=== PATIENT | male | born 1980 | race Two or more races ===

== ENCOUNTER 2021-07-25 19:07 | Emergency (ER) | payer OTHER ==
[~2021-07-25] VITALS: Ht 162.6 cm; Wt 103.0 kg
[2021-07-25] MEDS ORDERED: VITAMIN D3250 MC2 PO (20:01)
--- OUTSIDE RECORDS SUMMARY | 2021-07-25 22:02 | XMS ---
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 [place] - 3 Facilities in 90 Days - [facility] [place] - 2 Visits in 30 Days CARE PROVIDERS ADE [facility] Current PHONE: Unknown [facility] Current PHONE: [phone] Dominique has no Care Guidelines for this patient. E.DMyrtle VISIT COUNT (12 MO.) 1 [facility]. 2 [facility] 1 [facility] TOTAL 4 NOTE: Visits indicate total known visits. ED/UCC VISIT TRACKING (12 MO.) 07/25/2021 19:08 [facility] [place] TYPE: Emergency COMPLAINT: - ABDOMINAL PAIN 06/27/2021 07:06 [facility] TYPE: Emergency DIAGNOSES: - Headache, unspecified - Nausea with vomiting, unspecified 06/26/2021 17:43 [facility] TYPE: Emergency DIAGNOSES: - Diverticulitis of intestine, part unspecified, without perforation or abscess without bleeding [facility] COMPLAINT: - BEE STING/ SEVERE ALLERGY INPATIENT VISIT TRACKING (12 MO.) No inpatient visits to display in this time frame [email or web address]
== END 2021-07-26 01:24 | disposition home or self-care (01) ==
LOC: ED 19:07
DX: E83.51 Hypocalcemia (principal); R10.9 Unspecified abdominal pain; J45.909 Unspecified asthma, uncomplicated; Z88.1 Allergy status to other antibiotic agents; Z88.0 Allergy status to penicillin; Z79.899 Other long term (current) drug therapy
CPT/HCPCS: 74177; 80053; 81001; 83690; 83735; 85025; 99284-25; Q9967